=== PATIENT | male | born 1995 | race Caucasian/White ===

== ENCOUNTER 2021-11-15 15:12 | Outpatient (REF) | payer OTHER, SELFPAY ==
--- NOTE | ~2021-11-15 | XR_ITS ---
EXAMINATION: XR LUMBOSACRAL SPINE WITH OBLIQUES CLINICAL INFORMATION: Radiculopathy lumbar region COMPARISON: 10/30/2006. TECHNIQUE: AP, both oblique, and lateral views of the lumbar spine. Lateral view of the lumbosacral junction. FINDINGS: Straightening of normal lordosis. Otherwise alignment is normal. Vertebral body heights are maintained. There is new moderate degenerative disc space narrowing at L5-S1 with endplate sclerosis. No significant facet arthrosis. 3 mm calcification in the right upper quadrant may reflect a small kidney stone or gallstone. XR/XR lumbar spine 4V min IMPRESSION: New moderate degenerative disc space narrowing at L5-S1 with mild endplate sclerosis. 3 mm calcification in the right upper quadrant may reflect a small kidney stone or gallstone.
== END 2021-11-15 15:13 | disposition home or self-care (01) ==
LOC: HO.XRAY 15:12
PROVIDERS: PCP Internal Medicine; Visit Provider Internal Medicine
DX: M54.16 Radiculopathy, lumbar region (principal)
CPT/HCPCS: 72110

== ENCOUNTER 2021-11-28 15:43 | Outpatient (REF) | payer OTHER, SELFPAY ==
--- NOTE | ~2021-11-28 | MR_ITS ---
EXAMINATION: MR LUMBAR SPINE WITHOUT CONTRAST CLINICAL INFORMATION: New moderate narrowing of L5-S1 joint. Worsening back pain. COMPARISON: X-ray dated 11/15/2021. TECHNIQUE: MRI of the lumbar spine was obtained using routine sequences without contrast. FINDINGS: VERTEBRAL BODIES AND PARASPINAL STRUCTURES: The marrow signal is homogeneous, however, there is moderate endplate edema around a degenerative Schmorl's node along the inferior endplate of L5. Mild right lateralized endplate edema also evident at the S1 level. Reduced intradiscal signal evident at the L4-L5 level with a mild retrosubluxation. There is lnma-be-qtmglrou disc space narrowing and a posterior subluxation at the L5-S1 level. Remaining discs are well hydrated. The paraspinal soft tissues appear normal. The imaged bony pelvis is unremarkable. CONUS MEDULLARIS AND CAUDA EQUINA: Normal, terminating at the level of L1. No lower cord signal abnormality seen. The cauda equina nerve roots are normal. SPINAL LEVELS: L1-L2, L2-L3, and L3-L4: Well-hydrated normal appearance of the discs without central canal stenosis or foraminal narrowing. L4-L5: Retrosubluxation and disc degeneration with a shallow central disc protrusion and annular tear mildly impressing upon the ventral thecal sac and right L5 nerve root. Mild facet arthropathy without central canal stenosis. Mild foraminal narrowing. L5-S1: Loss of disc height and disc degeneration with a retrosubluxation and shallow, broad-based central disc protrusion. Mild to moderate facet arthropathy without central canal stenosis. Moderate to severe foraminal narrowing, more so on the right side with right lateralized endplate edema. MR/MR lumbar spine wo con IMPRESSION: Disc degeneration and posterior subluxation with a shallow central disc protrusion and underlying annular tear at the L4-L5 level mildly impressing upon the right L5 nerve root. Loss of disc height and posterior subluxation at the L5-S1 level with a shallow broad-based central disc protrusion. Noqslinz-my-njgstq foraminal narrowing, more so on the right side with right lateralized endplate edema around a degenerative inferior endplate Schmorl's node.
== END 2021-11-28 15:44 | disposition home or self-care (01) ==
LOC: HO.MRI 15:43
PROVIDERS: PCP Internal Medicine; Visit Provider Internal Medicine
DX: M54.16 Radiculopathy, lumbar region (principal)
CPT/HCPCS: 72148

== ENCOUNTER → 2021-12-06 10:16 | Outpatient (BNVA) | payer OTHER, SELFPAY | PROVIDERS: PCP Internal Medicine; Visit Provider Nurse Practitioner Family | DX: M51.36 Other intervertebral disc degeneration, lumbar region (principal); M54.51 Vertebrogenic low back pain; M54.17 Radiculopathy, lumbosacral region; M47.817 Spondylosis without myelopathy or radiculopathy, lumbosacral region | CPT/HCPCS: 99202 ==

== ENCOUNTER → 2021-12-20 09:00 | Outpatient (BNVA) | payer OTHER, SELFPAY | PROVIDERS: PCP Internal Medicine; Visit Provider Nurse Practitioner Family | DX: Z13.89 Encounter for screening for other disorder (principal) ==

== ENCOUNTER 2024-04-13 09:32 | Outpatient (REF) | payer MEDICAID, SELFPAY ==
[2024-04-13 12:11] LABS: Cholesterol 185 mg/dL (<200); HDL Cholesterol 34 mg/dL (>40); LDL Cholesterol Calculated 129 mg/dL (<100); Triglycerides 110 mg/dL (<150)
[2024-04-13 12:15] LABS: HBS Num1 44.56 mIU/mL (0-7.99); HBc Num1 0.08 S/CO (0.00-0.79); HBsAGNum1 0.26 S/CO (0.00-0.99); HIV AB/AG Nonreactive (Nonreactive); HIV Num 1 0.05 S/CO (0.00-0.99); Hepatitis B Core Antibody Nonreactive (Nonreactive); Hepatitis B Surface Antigen Negative (Negative); ~Hepatitis B Surface Antibody REACTIVE (Nonreactive); ~Hepatitis C Antibody Nonreactive (Nonreactive)
[2024-04-13 13:11] LABS: CT PCR NOT DETECTED (Not Detect.); NG PCR NOT DETECTED (Not Detect.)
[2024-04-15 09:59] LABS: RPR Rapid Plasma Reagin NON-REACTIVE (NON-REACTIVE)
== END 2024-04-13 09:33 | disposition home or self-care (01) ==
LOC: HO.HHCL 09:32
PROVIDERS: Visit Provider Nurse Practitioner
DX: Z13.9 Encounter for screening, unspecified (principal)
CPT/HCPCS: 36415; 80061; 86592; 86704; 86706; 86803; 87340; 87389; 87491; 87591

== ENCOUNTER 2024-11-16 13:57 | Outpatient (AMB) | payer MEDICAID, SELFPAY ==
--- NOTE | 2024-11-16 13:58 | A.OFFVIS_ITS ---
Vital Signs 11/16/24 14:13 Height 5 ft 7 in Weight 183 lb 6.793 oz BMI 28.7 BP 108/58 L Blood Pressure Location Rt brachial Position Sitting Pulse 62 Pulse Source Pulse Oximeter Pulse Oximetry (%) 97 Oxygen Delivery Method Room Air Intake Visit Reasons: LLQ ABD. PAIN Intake Note: NEW PATIENT for LLQ pain x2-3 mos episodic. Prior hx of colo/egd? N Chief Complaint; C/O burning sensation, seemingly dependent on position. Pt denies any other concerns or sx at this time. Ground Systems Engineer Required: No Accompanied by: Self / Same As Patient Allergies bee pollen [BEE STINGS] Allergy (Unknown, Verified 04/21/24 16:29) UNKNOWN HPI HPI LLQ ABD. PAIN: Details: 29-year-old male with past medical history of lumbosacral radiculopathy is here today for initial consultation. Patient was sent to us for symptoms of left lower quadrant pain. Patient reports that the pain feels like burning. Is not constant but worse when he is laying on that side. Patient admits that he is not moving his bowels completely. Sometimes no bowel movement for 1 or 2 days. Patient denies any melena, hematochezia, unintentional weight loss or ribbon like stools. Patient denies any dyspepsia, dysphagia or odynophagia. Denies any other GI concerning issues. Occasional postprandial abdominal bloating depending on what he. [facility], [facility] Surgical History Hx of appendectomy (~09/2003) Social History Alcohol intake: current Comment: Weekend Patient Tobacco Use Status: Never used Tobacco Substance Use Type: Marijuana Review of Systems Const Denies weight gain and Denies weight loss ENT Reports no additional complaints, Denies dysphagia and Denies odynophagia Card Reports no additional complaints Resp Reports no additional complaints GI Reports abdominal pain (LLQ), Denies belching, Denies melena, Reports bloating, Denies change in bowel habits, Denies dysphagia, Denies excessive flatus, Denies dyspepsia, Denies heartburn, Denies diarrhea, Denies loose stools, Denies nausea, Denies odynophagia and Denies vomiting Reports no additional complaints Musc Reports no additional complaints Neuro Reports no additional complaints Psych Reports no additional complaints Endo Reports no additional complaints Physical Exam Vital Signs: Last Vital Signs Pulse 62 11/16/24 14:13 BP 108/58 L 11/16/24 14:13 Pulse Ox 97 11/16/24 14:13 Oxygen Delivery Method Room Air 11/16/24 14:13 BMI result Body Mass Index 28.7 Const General: healthy appearing, no acute distress and well developed Nutritional Appearance: well nourished Orientation/consciousness: patient oriented x3 Resp Effort & Inspection: normal respiratory effort, able to speak in complete sentences, no tracheal deviation and symmetric chest movement Auscultation: clear to auscultation bilaterally Cardio Rate: regular rate GI Inspection: Yes normal to inspection and No distended Palpation (GI): Soft to palpation, not firm, nontender and No hepatosplenomegaly present Auscultation: normal bowel sounds General: Yes no CVA tenderness Back/Spine/Pelvis Back: no CVA tenderness Skin General skin exam: elasticity normal, turgor normal and dry skin Neuro General: patient oriented x3 Psych Appearance: grossly normal Mental Status: mental status grossly normal Assessment & Plan Assessment & Plan (1) LLQ abdominal pain: Code(s): R10.32 - Left lower quadrant pain (2) Constipation: Code(s): K59.00 - Constipation, unspecified Qualifiers: Constipation type: slow transit constipation Qualified Code(s): K59.01 - Slow transit constipation (3) GERD (gastroesophageal reflux disease): Code(s): K21.9 - Gastro-esophageal reflux disease without esophagitis Qualifiers: Esophagitis presence: esophagitis presence not specified Qualified Code(s): K21.9 - Gastro-esophageal reflux disease without esophagitis Plan Left lower quadrant pain most likely related to him not emptying his bowels completely. Patient will try stool softener and see if that will help. He will call our office in week or 2 if he continues to have symptoms. For now we will hold off on ordering CT scan. Patient does not have any other symptoms except for burning like pain when constipated. Patient also suffers will low back pains. Negative physical exam today. Patient was encouraged to increase fluid intake and activity to promote better bowel motility. Reflux occasional, can be controlled with food. Patient will avoid dietary triggers and late night snacking. Avoid NSAIDs. Staying upright for minimum 3 hours after meals discussed with patient. Follow-up in the office in 3 months, sooner on as needed basis. Patient is agreeable to this plan and verbalizes understanding of instructions. He was given the opportunity to ask questions and all questions answered. Thank you for allowing me to participate in his care Medications: New docusate sodium 100 mg PO BEDTIME 90 caps 3RF K59.00 - Constipation, unspecified Coding Level of Care Code New Pt Level 3 (83394) Diagnoses LLQ abdominal pain R10.32 Slow transit constipation K59.01 Constipation type: slow transit constipation Gastroesophageal reflux disease, unspecified whether esophagitis present K21.9 Esophagitis presence: esophagitis presence not specified Time Spent (min) 40 Comment 30 minutes spent with patient and additional 10 minutes spent reviewing his records
[2024-11-16 14:13] VITALS: BP 108/58; PULSE 62; O2SAT 97; BMI 28.7
--- OUTSIDE RECORDS SUMMARY | 2024-11-16 16:46 | XMS_ITS | Encounter Summary ---
Author Organization [employer] Address [address] [place] [address] Care Team Providers Care Commissions Coordinator Name Role Phone Tamra Rowley NP Primary Care Provider [phone] Encounter Details Date Type Department Care Team ([facility] st Contact Info) Description 11/09/2024 Telephone [facility] [address] [place] [address] Rivka Avendaño MD [address] [place] [address] Social History Tobacco Use Types Packs/Day Years Used Date Smoking Tobacco: Former Cigarettes Smokeless Tobacco: Current Comments:Occasional cig smok ing about 2 weekends a month; vapes occasionally as well Alcohol Use Standard Drinks/Week Comments Yes 12 (1 standard drink = 0.6 oz pu re alcohol) on the weekends Alcohol Answer Date Recorded How often do you have a drink containing alcohol ? 2 04/13/2024 How many drinks containing a lcohol do you have on a typical day when you are drinking? 3 04/13/2024 How often do you have six or more drinks on one occasion? 2 04/13/2024 Depression Answer Date Recorded Patient Health Questionnaire-9 Score 0 02/12/2024 Patient Health Questionnaire-9 Score 0 02/12/2024 Last PHQ-9: Questionnaire Data Not on file 0 02/12/2024 Housing Stability Answer Date Recorded What is your housing situation today? I have werner garcia 01/29/[address] you li ve. Do you have problems with any of the following? None of the above 01/29/2024 Food Insecurity Answer Date Recorded Within the past 12 months, y ou worried that your food would run out before you got money to buy more: Never True 01/29/2024 Within the past 12 months,th e food you bought just didn't last and you didn't have enough money to get more: Never True Transportation Answer Date Recorded In the past 12 months, has l ack of transportation kept you from medical appts, meetings, work or from getting things needed for daily living? No 01/29/2024 Utilities Answer Date Recorded In the past 12 months, has t he electric, gas, oil or water company threatened to shut off services in your home? No 01/29/2024 Depression Answer Date Recorded Patient Health Questionnaire-2 Score 0 02/12/2024 Sex and Gender Information Value Date Recorded Sex Assigned at Male 07/14/2022 10:15 AM EDT Legal Sex Male 10:15 AM EDT Gender Identity Male 07/14/2022 10:15 AM EDT Sexual Orientation Straight 07/14/2022 10 :15 AM EDT documented as of this encounter Miscellaneous Notes * Telephone Encounter - Opal Jimenez RN - 11/09/2024 1:22 PM EST Assessment: Patient presents to [facility] [place] c/o 2 recent episodes of chest pain and left arm pain. First episode occurred Thursday evening 11/06/24, and lasted intermittently throughout the night. Patient states pain was 7/10 and poking in the left lower chest with lingering left arm pain. Patient states he was lightheaded during the night- not any better when laying down and he was unable to sleep. Patient also reports some SOB during the episode. Today Patient states he started feeling the left arm pain again and also a weird feeling in the left chest while at work. Patient reports pain was a 6/10 lasted from around [id number]. Right now patient denies any pain, 0/10, states he is feeling back to normal. Patient reports he was informed his cholesterol was high when he last had blood work about 2-3 months ago. No changes made after being informed about high cholesterol. Intermittently vapes nicotine, denies smoking cigarettes and denies any drug use. Patient takes ibuprofen 800mg daily for sciatica pain. Recent ED visit or hospitalization: No. VS as follows (if applicable): Temp 97.8 orally HR 67 regular rate and rhythm Resp 16 no respiratory distress BP 130/81 left Arm; Device: Automatic Cuff Size: regular O2 sat 98 % on room air Current Pain level: 0 Hgt 5'7 Wgt 182lb No Known Allergies Current Outpatient Medications Medication Sig Dispense Refill ciclopirox (Penlac) 8 % solution APPLY TOPICALLY AT BEDTIME 6 mL 3 ibuprofen 400 MG tablet Take 1 tablet (400 mg) by mouth every 6 (six) hours if needed for moderate pain or fever for up to 30 doses. 30 tablet 0 lidocaine (Lidoderm) 5 % patch Apply 1 patch topically Once per day. Remove & discard patch within 12 hours or as directed by MD. May use 2 patches at once. 60 patch 2 No current facility-administered medications for this visit. Patient Active Problem List Diagnosis Date Noted Acute left-sided low back pain without sciatica 04/18/2024 Routine adult health maintenance 04/13/2024 Low back pain radiating to right leg 01/05/2019 Fungal infection of foot 01/31/2015 In Office Testing EKG performed and given to Dr Roy for interpretation Plan of care: Report to Dr Aravind Roy Provider evaluation: Yes Patient in triage room awaiting Provider evaluation. Michael GARCIA also updated on plan of care. Opal Jimenez RN documented in this encounter Plan of Treatment Not on file documented as of this encounter Visit Diagnoses Not on filedocumented in this encounter Additional Health Concerns Assessment Noted Time PHQ-9 Depression Total Score: 0 02/12/20 1:47 PM EDT documented as of this encounter Care Teams Commissions Coordinator Relationship Specialty Start Date End Date Tamra Rowley NP [address] [place] [phone] PCP - General Family Medicine 11/12/23 documented as of this encounter
--- OUTSIDE RECORDS SUMMARY | 2024-11-16 16:46 | XMS_ITS | Encounter Summary ---
Author Organization [employer] Address [address] [place] [address] Care Team Providers Care Smoke And Flame Specialist Name Role Phone Tamra Rowley NP Primary Care Provider [phone] Reason for Visit * Reason Onset Date Comments Results 07/20/2024 Encounter Details Date Type Department Care Team ([facility] st Contact Info) Description 07/20/2024 Telephone [facility] [address] [place] [address] Tamra Rowley NP [address] [place] [address] Results Social History Tobacco Use Types Packs/Day Years [...] encounter Miscellaneous Notes * Telephone Encounter - Lizbeth Cisneros RN - 07/21/2024 11:35 AM EST Tc to [facility] to confirm if pt completed their CT Abdomen Pelvis w/Contrast. [facility] reports they have no order and pt did not complete CT with them Tc to [facility] to confirm if pt complete cat scan with them which ed they confirmed and faxed over to us. Message for forwarded to ordering provider for review. * Telephone Encounter - Oziel Goldberg - 07/20/2024 2:33 PM EST TC from pt requesting call back regarding Results. Type of results: CT Date when done: last week didn't know specificly Facility: [facility] Contact pt at [phone] documented in this encounter Plan of Treatment Not on file documented as of this encounter Visit Diagnoses Not on filedocumented in this encounter Additional Health Concerns Assessment Noted Time PHQ-9 Depression Total Score: 0 02/12/20 1:47 PM EDT documented as of this encounter Care Teams Smoke And Flame Specialist Relationship Specialty Start Date End Date Tamra Rowley NP [address] [place] [address] PCP - General Family Medicine 11/12/23 documented as of this encounter
--- OUTSIDE RECORDS SUMMARY | 2024-11-16 16:46 | XMS_ITS | Encounter Summary ---
Author Organization [email or web address] Address [address] [place] [address] Care Team Providers Care Golf Ball Cover Treater Name Role Phone Tamra Rowley NP Primary Care Provider [phone] Reason for Visit * Reason Onset Date Comments Order 06/24/2024 Encounter Details Date Type Department Care Team ([facility] st Contact Info) Description 06/24/2024 Telephone [facility] [address] [place] [address] Tamra Rowley NP [address] [place] [address] Order Social History Tobacco Use Types Packs/Day Years [...] encounter Miscellaneous Notes * Telephone Encounter - Marce Hansen - 06/24/2024 1:07 PM EDT Tc from pt requesting status on order for cat scan of the abdomin. Pt stated he was advise during [facility] visit on 06/08/24 a order would be placed. Contact pt at [phone] documented in this encounter Plan of Treatment Not on file documented as of this encounter Visit Diagnoses Not on filedocumented in this encounter Additional Health Concerns Assessment Noted Time PHQ-9 Depression Total Score: 0 02/12/20 1:47 PM EDT documented as of this encounter Care Teams Golf Ball Cover Treater Relationship Specialty Start Date End Date Tamra Rowley NP [address] [place] [id number] PCP - General Family Medicine 11/12/23 documented as of this encounter
--- OUTSIDE RECORDS SUMMARY | 2024-11-16 16:46 | XMS_ITS | Encounter Summary ---
Author Organization [employer] Address [address] [place] [address] Care Team Providers Care Industrial Cafeteria Manager Name Role Phone Tamra Rowley NP Primary Care Provider [phone] Reason for Referral * Consultation (Routine) - Authorized Specialty Diagnoses / Procedures Referred By Khoa jane Referred To Contact Cardiology Diagnoses Chest pain, unspecified type Aravind Roy MD [address] [place] [phone] Phone: tel: fax: [address] Phone: tel: fax: Referral ID Status Reason Start Date Expiration Date Visits Requested Visits Authorized [id number] Authorized Specialty Services Required 11/09/2024 11/09/2025 6 6 Encounter Details Date Type Department Care Team (Late st Contact Info) Description 11/09/2024 3:20 PM EST Office Visit [facility] [address] [place] [address] [phone] Aravind Roy MD [address] [place] [address] [phone] Chest pain, unspecified type (Primary Dx) Social History Tobacco Use Types Packs/Day Years [...] AM EDT documented as of this encounter Last Filed Vital Signs Vital Sign Reading Time Taken Comments Blood Pressure 130/81 11/09/2024 1:48 PM EST Pulse 67 11/09/2024 1:48 PM EST Temperature 36.6 ??C (97.8 ??F) 11/09/2024 1:48 PM ES T Respiratory Rate 16 11/09/2024 1:48 PM EST Oxygen Saturation 98% 11/09/2024 1:48 PM EST Inhaled Oxygen Concentration - - Weight 82.6 kg (182 lb) 11/09/2024 1:48 PM EST Height 170.2 cm (5' 7 ) 11/09/2024 1:48 PM EST Body Mass Index 28.51 11/09/2024 1:48 PM EST documented in this encounter Progress Notes * Aravind Roy MD - 11/09/2024 3:40 PM ESTAssociated Order(s): ECG 12 lead Pre-Procedure Diagnose(s): Chest pain, unspecified type Post-Procedure Diagnose(s): Chest pain, unspecified type Subjective Patient ID: Armen Ferguson is a 29 y.o. male. HPI 3 days ago at night while resting in bed Shon had onset of left anterior chest pain which she describes as sharp, pinching, and poking and radiated down his left arm with associated shortness of breath. It was intermittent throughout the night. No associated nausea, vomiting, diaphoresis. In the morning when he woke his symptoms had resolved. 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 They lasted off-and-on for 2 hours and resolved. He is currently asymptomatic. Never had similar symptoms. Has no known family history of coronary artery disease. He had slightly elevated cholesterol November 15, 2021 and states he has been using lifestyle changes to lower cholesterol. Lives with spouse. Works driving trucks. Former smoker. Patient Active Problem List Diagnosis Low back pain radiating to right leg Fungal infection of foot Routine adult health maintenance Acute left-sided low back pain without sciatica The following portions of the chart were reviewed this encounter and updated as appropriate: Review of Systems Constitutional: Negative for fever. Respiratory: Positive for shortness of breath. Cardiovascular: Positive for chest pain. Gastrointestinal: Negative for abdominal pain. Skin: Negative for rash. Neurological: Negative for headaches. Objective Physical Exam Constitutional: Appearance: Normal appearance. HENT: Right Ear: Tympanic membrane, ear canal and external ear normal. Left Ear: Tympanic membrane, ear canal and external ear normal. Nose: Nose normal. Mouth/Throat: Mouth: Mucous membranes are moist. Pharynx: Oropharynx is clear. Eyes: Conjunctiva/sclera: Conjunctivae normal. Pupils: Pupils are equal, round, and reactive to light. Cardiovascular: Rate and Rhythm: Normal rate and regular rhythm. Heart sounds: No murmur heard. Pulmonary: Effort: Pulmonary effort is normal. Breath sounds: Normal breath sounds. Musculoskeletal: General: Normal range of motion. Cervical back: No tenderness. Skin: Findings: No rash. Neurological: Mental Status: He is alert. Gait: Gait is intact. Psychiatric: Mood and Affect: Mood normal. Behavior: Behavior normal. ECG 12 lead Date/Time: 11/09/2024 2:00 PM Performed by: Aravind Roy MD Authorized by: Aravind Roy MD Previous ECG: Previous ECG: Unavailable Interpretation: Interpretation: normal Rate: ECG rate: 61 ECG rate assessment: normal Rhythm: Rhythm: sinus rhythm Ectopy: Ectopy: none QRS: QRS axis: Normal QRS intervals: Normal QRS conduction: normal ST segments: ST segments: Normal T waves: T waves: normal Q waves: Abnormal Q-waves: not present Assessment/Plan Diagnoses and all orders for this visit: Chest pain, unspecified type EKG: Normal Currently asymptomatic. Go to ED if sx recur. Referred to Cardiology. documented in this encounter Plan of Treatment Pending Results Name Type Priority Associated Diagnoses Date /Time ECG 12 lead ECG Routine Chest pain, unspecified type 11/09/2024 4:22 PM EST Scheduled Referrals Name Type Priority Associated Diagnoses Orde r Schedule Referral to Cardiology Outpatient Referral Routine Chest pain, unspecified type Expected: 11/09/2024 (Approximate), Expires: 11/09/2025 documented as of this encounter Procedures Procedure Name Priority Date/Time Associated Diagnosis Comments ECG 12-LEAD Routine 11/09/2024 4:22 PM EST Chest pain, unspecified type documented in this encounter Visit Diagnoses Diagnosis Chest pain, unspecified type- Primary documented in this encounter Additional Health Concerns Assessment Noted Time PHQ-9 Depression Total Score: 0 02/12/20 24 1:47 PM EDT documented as of this encounter Care Teams Industrial Cafeteria Manager Relationship Specialty Start Date End Date Tamra Rowley NP [address] [place] [phone] PCP - General Family Medicine 11/12/23 documented as of this encounter
--- OUTSIDE RECORDS SUMMARY | 2024-11-16 16:46 | XMS_ITS | Clinical Summary ---
Author Organization [employer] Address [address] [facility] [address] [facility] [address] [place] [address] Care Team Providers Care Assurance Specialist Name Role Phone Tamra Rowley NP Primary Care Provider [phone] Allergies No known active allergies Medications ciclopirox (Penlac) 8 % solutionIndicat ions:Tinea pedis of both feet APPLY TOPICALLY AT BEDTIME 6 mL 3 4 Active lidocaine (Lidoderm) 5 % patch Apply 1 patch topically Once per day. Remove & discard patch within 12 hours or as directed by MD. May use 2 patches at once. 60 patch 2 4 06/08/20 25 Active ibuprofen 400 MG tablet Take 1 tablet (400 mg) by mouth every 6 (six) hours if needed for moderate pain or fever for up to 30 doses. 30 tablet 4 Active ibuprofen 200 MG tablet Take 200 mg by mouth. 10/28/19 25 Discontinu ed(Therapy completed) ibuprofen 800 MG tablet Take 800 mg by mouth every 8 (eight) hours if needed. 3 10/28/19 25 Discontinu ed(Therapy completed) Active Problems Problem Noted Date Diagnosed Date Acute left-sided low back pain without sciatica 04/18/2024 Routine adult health maintenance 04/13/2024 Assessment & Plan (04/13/2024 9:34 AM EDT): -age appropriate screening and immunizations up to date (STI screening) -low cardiovascular risk -mental health screening negative -healthy diet and routine daily exercise of 60 min minimum -healthy social behaviors encouraged -anticipatory guidance reviewed: diet, exercise -smoking/vaping cessation encouraged. Patient is not ready at this time -Tdap vaccine received today -follow-up 1 year for PE or as needed Low back pain radiating to right leg 01/05/2019 Fungal infection of foot 01/31/2015 Assessment & Plan (04/12/2024 10:03 PM EDT): -trial application of penlac to toenails nightly and apply clotrimazole cream between toes -advised to spray all shoes with OTC lotrimin spray to prevent cycle of re- infection -advised to expose bare feet to air -educated on the length of time for toenail fungus to heal -discussed implication for and potential side effect of oral medication for treatment -will schedule for transfer patient visit Encounters Date Type Department Care Team Description 11/09/2024 3:20 PM EST Office Visit [facility] [address] [place] [address] Aravind Roy MD Chest pain, unspecified type (Primary Dx) 11/09/2024 Telephone [facility] [address] [place] [address] Rivka Avendaño MD 10/14/2024 11:00 AM EST Office Visit [facility] [address] [place] [address] Randy, Autumn, OD Chorioretinal scar of both eyes (Primary Dx); Suspicious optic nerve cupping of both eyes; Astigmatism of both eyes, unspecified type 10/14/2024 Travel 10/07/2024 Travel 09/08/2024 Telephone [facility] [address] [place] [address] Tamra Rowley NP from Last 3 Months Immunizations Name Administration Dates Next Due DTaP 02/20/1997, 6,1993,06/26,1993 Hep B, Adolescent or Pediatric 1993,1993,1993 Hib (HbOC) 1993, 4,1993,04/17 IPV 02/20/1997, 4,1993,02/24 Influenza injectable quadriv alent IIV4 with preservative 07/22/2016 MMR 02/20/1997,1993 Meningococcal MPSV4 05/03/2008 TD (adult), 2 Lf tetanus tox oid, preservative free, adsorbed 11/15/2021,03/01/2005 Tdap 04/13/2024,05/03/2008 Varicella 05/03/2008 Family History Medical History Relation Name Comments Diabetes Brother Diabetes Maternal Grandmother Diabetes Mother Diabetes Paternal Grandmother Relation Name Status Comments Brother Maternal Grandmother Mother Paternal Grandmother Social History Tobacco Use Types Packs/Day Years Used Date Smoking Tobacco: Former Cigarettes Smokeless Tobacco: Current Tobacco Cessation:Ready to Q uit: Not Asked; Counseling Given: Not Answered Comments:Occasional cig smoking about 2 weekends a month; vapes occasionally [...] Orientation Straight 07/14/2022 10 :15 AM EDT Last Filed Vital Signs Vital Sign Reading [...] Mass Index 28.51 11/09/2024 1:48 PM EST Plan of Treatment Health Maintenance Due Date Last Done Comments Family Planning (PISQ) 02/05/2008 COVID-19 Vaccine ( season) 2024 Influenza Vaccine (#1) 2024 07/22/2016 SDOH Screening 01/28/2025 01/29/2024 Depression Screening 02/11/2025 02/12/2024, 02/12/20 Alcohol/Substance Use Screening 04/13/2025 04/13/2024 Tobacco Screening 11/09/2025 11/09/2024 Lipid Panel 04/13/2029 04/13/2024, 11/15/2021 DTaP/Tdap/Td Vaccines (9 - Td or Tdap) 04/13/2034 04/13/2024, 11/15/2021, 05/03/2008, Additional history exists Zoster Vaccines (1 of 2) 2043 RSV Patients and Patients Aged 60 years or older (1 - 1-dose 75+ series) 02/05/2068 Hepatitis B Vaccines Completed 1993, 1993, 1993 HIB Vaccines Aged Out 1993, 09/16, 1993, Additional history exists No longer eligible based on patient's age to complete this topic IPV Vaccines Completed 02/20/1997, 09/16, 1993, Additional history exists Meningococcal Vaccine Aged Out 05/03/2008 No carmelo mando eligible based on patient's age to complete this topic HIV Screening Completed 04/13/2024, 11/15/2021 Hepatitis C Screening Completed 04/13/2024, 022 HPV Vaccines Aged Out No longer eligi ble based on patient's age to complete this topic Hepatitis A Vaccines Aged Out No long er eligible based on patient's age to complete this topic Pneumococcal Vaccine: Pediatrics (0 to 5 Years) and At-Risk Patients (6 to 49) Years) Aged Out No longer eligible based on patient's age to complete this topic RSV under 20 months Aged Out No longe r eligible based on patient's age to complete this topic Rotavirus Vaccines Aged Out No longer eligible based on patient's age to complete this topic Procedures Procedure Name Priority Date/Time Associated Diagnosis Comments ECG 12-LEAD Routine 11/09/2024 4:22 PM EST Chest pain, unspecified type OCT, OPTIC NERVE - OU - BOTH EYES Routine 10/14/2024 11:00 AM EST Suspicious optic nerve cupping of both eyes HEPATITIS C AB W/REFL TO HCV RNA, QN, PCR Routine 04/13/2024 9:38 AM EDT Encounter for health-related screening HIV 1/2 ANTIGEN/ANTIBODY, FOURTH GENERATION W/RFL Routine 04/13/2024 9:38 AM EDT Encounter for health-related screening LIPID PANEL, STANDARD Routine 04/13/2024 9:38 AM EDT Encounter for health-related screening from Last 3 Months or Most Recently Relevant to Health Maintenance Results * Hepatitis C Antibody with Reflex to HCV, RNA, Quantitative, Real-Time PCR (04/13/2024 9:38 AM EDT) Hepatitis C Antibody Nonreactive Nonreactive [facility] Comment:Antibodies to HCV no t detected; does not exclude early acuteHCV infection. Blood Venous blood specimen / Unknown 04/13/2024 9:38 AM EDT 04/13/2024 11:21 AM EDT [facility] LAB BLOOD ORDERABLES Final Resu lt [facility] [address] [place] [address] [phone] * HIV-1/2 Antigen and Antibodies, Fourth Generation, with Reflexes (04/13/2024 9:38 AM EDT) HIV AB/AG Nonreactive Nonreactive [facility] Comment:HIV-1 p24 Ag and/or HIV-1/HIV-2 Ab not detected.A test result that is nonreactive does not exclude thepossibility of exposure to or infection with HIV-1 and/orHIV-2. Nonreactive results in this assay for individualswith prior exposure to HIV-1 and/or HIV-2 may be due toantigen and antibody levels that are below the limit ofdetection of this assay.The [employer] HIV Ag/Ab Combo assay result andsupplemental assay results should be interpreted inconjunction with the patient's clinical presentation,history and other laboratory results. If the results areinconsistent with clinical evidence, additional testing issuggested to confirm the result. Blood Venous blood specimen / Unknown 04/13/2024 9:38 AM EDT 04/13/2024 11:[address] [facility] LAB BLOOD ORDERABLES Final Resu lt [facility] [address] [place] [address] [phone] * (ABNORMAL) Lipid Panel, Standard (04/13/2024 9:38 AM EDT) Triglycerides 110 <150 mg/dL [facility] Comment:Desirable Triglyceri de: less than 150 mg/dLBorderline High Triglyceride 150-199 mg/dLHigh Triglyceride: 200-499 mg/dLVery High Triglyceride: greater than or equal to 5OO mg/dL Cholesterol 185 <200 mg/dL [facility] Comment:Desirable Cholestero l: less than 200 mg/dLBorderline High Cholesterol: 200-239 mg/dLHigh Cholesterol: greater than 239 mg/dL LDL Cholesterol Calculated 129(H) <100 mg/dL [facility] Comment:Desirable LDL: less than 100 mg/dLNear Optimal/Above Optimal LDL: 110- 129 mg/dLBorderline High LDL: 130-159 mg/dLHigh LDL: 160-189 mg/dLVery High LDL: greater than or equal to 190 mg/dL HDL Cholesterol 34(L) >40 mg/dL [facility] Comment:Desirable HDL: great er than 40 mg/dL Note: This HDL assay may give artificially low results in patients with liver disease. Blood Venous blood specimen / Unknown 04/13/2024 9:38 AM EDT 04/13/2024 11:21 AM EDT Tamra Rowley NP LAB BLOOD ORDERABLES Final Resu lt [facility] [address] [place] [address] [phone] from Last 3 Months or Most Recently Relevant to Health [place] [id number] [facility] C3 HSN FULL Care Teams Assurance Specialist Relationship Specialty Start Date End Date Tamra Rowley NP [address] [place] [phone] PCP - General Family Medicine 11/12/23
== END 2024-11-16 14:43 | disposition home or self-care (01) ==
PROVIDERS: PCP Internal Medicine; Visit Provider Nurse Practitioner Family
DX: R10.32 Left lower quadrant pain (principal); K59.01 Slow transit constipation; K21.9 Gastro-esophageal reflux disease without esophagitis
CPT/HCPCS: 99203

== ENCOUNTER → 2024-11-16 13:57 | Outpatient (BNVA) | payer MEDICAID, SELFPAY | PROVIDERS: PCP Internal Medicine; Visit Provider Nurse Practitioner Family | DX: R10.32 Left lower quadrant pain (principal); K59.01 Slow transit constipation; K21.9 Gastro-esophageal reflux disease without esophagitis | CPT/HCPCS: 99212 ==

== ENCOUNTER 2025-04-24 08:17 | Outpatient (AMB) | payer OTHER, SELFPAY ==
--- NOTE | 2025-04-24 08:29 | A.OFFVIS_ITS ---
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 The chest pain was described as a vague discomfort that comes and goes, with episodes occurring randomly, such as while driving a truck. The pain was accompanied by left arm pain, lightheadedness, and dizziness. The patient reported no significant breathing problems, although he occasionally feels short of breath when walking. He is otherwise fully active and denies any major family medical issues. [facility] Surgical History Hx of appendectomy (~09/2003) Family History (Updated 04/24/25 @ 08:39 by Dagmar Wray) Mother Pre-diabetes Father No problems noted. Social History (Updated 04/24/25 @ 08:40 by Dagmar Wray) Alcohol intake: current Comment: weekend Patient Tobacco Use Status: Never used Tobacco Review of Systems Const Denies weakness ENT Reports dizziness Card Reports chest pain, Denies chest pain with activity, Denies syncope, Denies rapid heart rate, Denies pedal edema, Denies edema, Denies leg edema, Denies lightheadedness, Denies palpitations, Reports dyspnea, Denies dyspnea on exertion and Denies orthopnea Resp Denies cough, Reports dyspnea and Denies dyspnea on exertion GI Denies hematochezia and Denies change in stool character Musc Denies abnormal gait, Denies muscle cramps, Denies muscle weakness, Denies numbness, Denies radiating pain into limb and Denies tingling Neuro Denies abnormal gait, Reports dizziness, Denies syncope, Denies numbness, Denies tingling and Denies weakness Endo Denies palpitations Physical Exam Vital Signs: Last Vital Signs Pulse 67 04/24/25 08:30 BP 110/60 04/24/25 08:30 BMI result Body Mass Index 24.5 Const General: comfortable and no acute distress Orientation/consciousness: patient oriented x3 HEENT Other: Unremarkable Head: Yes normal to inspection Neck Neck: Yes normal visual inspection Chest Chest palpation & inspection: normal inspection of the chest Resp Auscultation: clear to auscultation bilaterally Cardio Palpation: normal PMI Heart sounds: S1 normal heart sound present, S2 normal heart sound present, no gallops, no murmurs and no rubs GI Palpation (GI): Soft to palpation Back/Spine/Pelvis Other: unremarkable Skin General skin exam: no rashes or lesions noted Neuro General: patient oriented x3 Extrem General: Yes normal to inspection Psych Mental Status: mental status grossly normal Office Procedures EKG Details: EKG with underlying sinus rhythm at 67/Min; inferior and lateral T inversions of uncertain etiology; [place] [address]-[id number], Complete Assessment & Plan Assessment & Plan (1) Precordial chest pain: Code(s): R07.2 - Precordial pain Category: Medical (2) SOB (shortness of breath): Code(s): R06.02 - Shortness of breath Category: Medical Plan An echocardiogram is planned to assess the patient's cardiac function and investigate the cause of the chest pain and associated symptoms. The patient is advised to monitor symptoms and report any worsening or new symptoms. Discussion Notes I discussed with the patient the plan to perform an echocardiogram to evaluate his cardiac health, given his symptoms of chest pain and associated discomfort. I reassured him that at his age, significant cardiac issues are uncommon, but it is prudent to investigate further. Patient was informed and verbally consented to the use of an ambient scribe for clinic note documentation during this visit. Orders: Orders CA echo transthoracic complete Today R06.02 - Shortness of breath, R07.2 - Precordial pain Patient Instructions: - Monitor symptoms and report any changes or new symptoms. - Follow up for the scheduled echocardiogram. Coding Level of Care Code New Pt Level 3 (93210) Diagnoses Precordial chest pain R07.2 SOB (shortness of breath) R06.02 CPT Codes EKG - CPT: 35140-Nnocjuymwrcyaizpu, Complete ([id number])
[2025-04-24 08:30] VITALS: BP 110/60; PULSE 67; BMI 24.5
--- OUTSIDE RECORDS SUMMARY | 2025-04-24 08:35 | XMS_ITS | Clinical Summary ---
Author Organization [employer] Address [address] [place] [address] Care Team Providers Care Production Artist Name Role Phone Tamra Rowley NP Primary Care Provider [phone] Allergies No known active allergies Medications lidocaine (Lidoderm) 5 % patch Apply 1 patch topically Once per day. Remove & discard patch within 12 hours or as directed by MD. May use 2 patches at once. 60 patch 2 06/08/20 24 025 Active ibuprofen 400 MG tablet Take 1 tablet (400 mg) by mouth every 6 (six) hours if needed for moderate pain or fever for up to 30 doses. 30 tablet 06/08/20 24 Active ciclopirox (Penlac) 8 % solutionIndica tions:Tinea pedis of both feet APPLY TOPICALLY AT BEDTIME 6 mL 3 05/23/20 24 025 Discontinued(Me d list cleanup (will not trigger notification to Pharmacy)) Active Problems Problem Noted Date Diagnosed Date [...] Encounters Date Type Department Care Team Description 04/12/2025 2:45 PM EDT Office Visit [facility] [address] [place] [id number] Tamra Rowley NP Overweight (BMI 25.0-29.9) (Primary Dx) 04/12/2025 Travel 04/11/[address] [address] Betty Reed [place] CHARTPREP 04/05/2025 Travel 04/05/[address] [facility] [address] [place] [address] Tamra Rowley NP Pre-visit Planning ([facility] unable to reach [facility] ) from Last 3 Months Immunizations Immunization Administration Dates Next Due DTaP 02/20/1997, 6,1993,06/26,1993 [...] Types Packs/Day Years Used Date Smoking Tobacco: Never Smokeless Tobacco: Former Quit: 2023 Tobacco Cessation:Counseling Given: Not Answered Comments:Occasional cig smoking about 2 weekends a month; vapes occasionally as well Alcohol Use Standard Drinks/Week Comments Yes 12 (1 standard drink = 0.6 oz pu re alcohol) on the weekends Alcohol Answer Date Recorded How often do you have a drink containing alcohol ? 2 04/12/2025 How many drinks containing a lcohol do you have on a typical day when you are drinking? 1 04/12/2025 How often do you have six or more drinks on one occasion? 0 04/12/2025 Depression Answer Date Recorded Patient Health Questionnaire-9 Score 0 04/12/2025 Patient Health Questionnaire-9 Score 0 04/12/2025 Last PHQ-9: Questionnaire Data Not on file 0 04/12/2025 Housing Stability Answer Date Recorded What is your housing situation today? I have werner garcia 04/12/[address] you li ve. Do you have problems with any of the following? None of the above 04/12/2025 Food Insecurity Answer Date Recorded Within the past 12 months, y ou worried that your food would run out before you got money to buy more: Not on file 04/12/2025 Within the past 12 months,th e food you bought just didn't last and you didn't have enough money to get more: Never True Transportation Answer Date Recorded In the past 12 months, has l ack of transportation kept you from medical appts, meetings, work or from getting things needed for daily living? No 04/12/2025 Utilities Answer Date Recorded In the past 12 months, has t he electric, gas, oil or water company threatened to shut off services in your home? No 04/12/2025 Depression Answer Date Recorded Patient Health Questionnaire-2 Score 0 04/12/2025 Internet Access Answer Date Recorded Internet Access Q1 Yes 04/12/2025 Internet Access Q2 Not on file 04/12/2025 Sex and Gender Information Value Date Recorded Sex Assigned at Male 07/14/2022 10:15 AM EDT Legal Sex Male 10:15 AM EDT Gender Identity Male 07/14/2022 10:15 AM EDT Sexual Orientation Straight 07/14/2022 10 :15 AM EDT Last Filed Vital Signs Vital Sign Reading Time Taken Comments Blood Pressure 120/78 04/12/2025 3:18 PM EDT Pulse 89 04/12/2025 3:18 PM EDT Temperature 37.1 C (98.7 F) 04/12/2025 3:18 PM EDT Respiratory Rate 21 04/12/2025 3:18 PM EDT Oxygen Saturation 97% 04/12/2025 3:18 PM EDT Inhaled Oxygen Concentration - - Weight 73.2 kg (161 lb 6.4 oz) 04/12/2025 3:18 P M EDT Height 170.2 cm (5' 7 ) 04/12/2025 3:18 PM EDT Body Mass Index 25.28 04/12/2025 3:18 PM EDT Plan of Treatment Health Maintenance Due Date Last Done Comments Family Planning (PISQ) 02/05/2008 HPV Vaccines (1 - Male 3-dose series) 02/05/2008 COVID-19 Vaccine ( - season) 2024 SDOH Screening 01/28/2025 01/29/2024 Influenza Vaccine (#1) 2025 07/22/2016 Alcohol/Substance Use Screening 04/12/2026 04/12/2025 Depression Screening 04/12/2026 04/12/2025, 04/12/20 Disability Screening 04/12/2026 04/12/2025 Tobacco Screening 04/12/2026 04/12/2025 DTaP/Tdap/Td Vaccines (9 - Td or Tdap) [...] 11/15/2021 Hepatitis C Screening Completed 04/13/2024, 022 Hepatitis A Vaccines Aged Out No long er eligible based on patient's age to complete this topic Meningococcal B Vaccine Aged Out No l onger eligible based on patient's age to complete this topic Pneumococcal Vaccine: Pediatrics (0 to 5 Years) and At-Risk Patients (6 to 49) Years Aged Out No longer eligible based on patient's age to complete this topic RSV under 20 months Aged Out No longe r eligible based on patient's age to complete this topic Rotavirus Vaccines Aged Out No longer eligible based on patient's age to complete this topic Procedures Procedure Name Priority Date/Time Associated Diagnosis Comments HEPATITIS C AB W/REFL TO HCV RNA, [...] AM EDT) Hepatitis C Antibody Nonreactive Nonreactive [facility] Comment:Antibodies to HCV no t detected; does not exclude early acuteHCV infection. Blood Venous blood specimen / Unknown 04/13/2024 9:38 AM EDT 04/13/2024 11:21 AM EDT us Tamra Rowley NP LAB BLOOD ORDERABLES Final Resu lt [facility] [address] [place] [phone] [phone] * HIV-1/2 Antigen and Antibodies, Fourth Generation, with Reflexes (04/13/2024 9:38 AM EDT) HIV AB/AG Nonreactive Nonreactive [facility] Comment:HIV-1 p24 Ag and/or HIV-1/HIV-2 Ab not detected.A test result that is nonreactive does not exclude thepossibility of exposure to or infection with HIV-1 and/orHIV-2. Nonreactive results in this assay for individualswith prior exposure to HIV-1 and/or HIV-2 may be due toantigen and antibody levels that are below the limit ofdetection of this assay.The [employer] HIV Ag/Ab Combo assay result andsupplemental assay results should be interpreted inconjunction with the patient's clinical presentation,history and other laboratory results. If the results areinconsistent with clinical evidence, additional testing issuggested to confirm the result. Blood Venous blood specimen / Unknown 04/13/2024 9:38 AM EDT 04/13/2024 11:21 AM EDT Tamra Rowley NP LAB BLOOD ORDERABLES Final Resu lt [facility] [address] [place] [phone] from Last 3 Months or Most Recently Relevant to Health Maintenance Insurance [facility] Care Teams Production Artist Relationship Specialty Start Date End Date Tamra Rowley NP [address] [place] [phone] PCP - General Family Medicine 11/12/23
== END 2025-04-24 08:51 | disposition home or self-care (01) ==
PROVIDERS: PCP Emergency Medicine; Visit Provider Internal Medicine
DX: R07.2 Precordial pain (principal); R06.02 Shortness of breath
CPT/HCPCS: 93010; 99203

== ENCOUNTER → 2025-04-24 08:17 | Outpatient (BNVA) | payer OTHER, SELFPAY | PROVIDERS: PCP Emergency Medicine; Visit Provider Internal Medicine | DX: R07.2 Precordial pain (principal); R06.02 Shortness of breath | CPT/HCPCS: 93005 ==

== ENCOUNTER → 2025-05-26 14:50 | Outpatient (REF) | payer OTHER, SELFPAY ==
--- NOTE | 2025-05-26 14:52 | CA_ITS ---
Transthoracic Echocardiogram Patient (Last, First, Middle): Armen Brown, Gender: Male Date of : 1995 Age: 30 Procedure Date: 05/26/2025 Procedure Type: Transthoracic Echocardiogram Location: OP Height: 167.64 cm Weight: 71.22 kg BSA: 1.80 m2 Heart Rate: 80 bpm BP: 95 / 60 mmHg Ocean Lifeguard Specialist: FLAKO Samson MD: Bryon Noe MD Culinary Assistant: Mazin Hanson MD Symptoms: R07.2 - Precordial pain Study Quality: Adequate ECG Rhythm: Sinus Conclusions: - Essentially normal study Findings Left Ventricle Normal left ventricular size, thickness, and systolic function. The visually estimated ejection fraction is between 55-60%. Spectral Doppler is indicative of a normal filling pattern. Right Ventricle Normal right ventricular cavity size and systolic function. Atria Both atria are normal in size. There is no evidence of interatrial shunt. Aortic Valve Normal aortic valve structure and function. There is no aortic valve stenosis. There is no aortic valve regurgitation. Mitral Valve Normal mitral valve structure and function. There is trace mitral valve regurgitation. There is no mitral valve stenosis. Pulmonic Valve The pulmonic valve is likely normal. There is trace pulmonic valve regurgitation. Tricuspid Valve Normal tricuspid valve structure. Tricuspid regurgitation envelope is inadequate for calculation of right ventricular systolic pressure. Normal right atrial pressure. Great Vessels All visible segments of the aorta are normal in size. The pulmonary artery was not well visualized. Venous The inferior vena cava is normal in size and collapses greater than 50% with inspiration. Pericardium/Pleural There is no evidence of pericardial effusion. Prior Study Comparison No prior study available for comparison. Measurements 2D Linear Measurements IVSd: 0.81 0.6-0.9/0.6-1.0 cm LVIDd: 4.78 3.9-5.3/4.2-5.9 cm LVIDd Index: 2.66 2.4-3.2/2.2-3.1 cm/m2 LVIDs: 3.17 2.0-3.6 cm LVPWd: 0.91 0.7-1.1 cm LA Diam: 2.80 2.7-3.8/3.0-4.0 cm LAIDs Index: 1.56 1.5-2.3 cm/m2 LV Mass: 172.29 67-162/88-224 g LV Mass Index: 95.72 43-95/49-115 g/m2 LVOT Diam: 2.10 3.0+(-)1.3 cm Mitral Valve MV Pk E: 0.63 MV PK A: 0.69 MV Decel Time: 165.00 E/A: 0.90 E'Lateral: 12.40 E'Medial: 8.70 E/E' Med: 7.20 E/E' Lat: 5.10 PHT: 48.00 MVA PHT: 4.58 Decel [place]: 3.81 Aortic Valve AoV Pk Meño: 1.11 AoV Mn Meño: 0.80 AoV VTI: 0.19 AoV Pk Grad: 5.00 Aov Mn Grad: 3.00 KALYN Cont.VTI: 2.90 LVOT LVOT Pk Meño: 0.90 LVOT Mn Meño: 0.65 LVOT VTI: 0.16 LVOT Pk Grad: 3.00 LVOT Mn Grad: 2.00 LVOT Diam: 2.10 LVOT Area: 3.46 Diastolic Function MV Pk E: 0.63 MV Pk A: 0.69 E/A: 0.90 E'Medial: 8.70 E/E' Med: 7.20 E' Laterial: 12.40 E/E' Lat: 5.10 Right Ventricle TAPSE (mm): 18.70 TVS' Meño: 10.00 Tricuspid Valve RA Press: 3.00 Great Vessels Aorta Sinus of Valsalva: 3.10 2.0-3.5 cm Ao Asc: 2.40 2.1-3.4 cm Ao Arch: 2.60 Pulmonary Veins Pulm Vein S/D 0.70 Pulmonary Valve PV Pk Meño: 0.97 Peak PV Grad: 4.00 Updated in Other Vendor System with Status of Final Mazin Hanson MD electronically signed on 05/27/2025 9:01:04 AM with status of Final
--- OUTSIDE RECORDS SUMMARY | 2025-05-26 17:31 | XMS_ITS | Encounter Summary ---
Author Organization [employer] Address [address] [facility] [place] [address] Care Team Providers Care Freight Weigher Name Role Phone Tamra Rowley NP Primary Care Provider [phone] Reason for Visit * Reason Onset Date Comments Order 06/24/2024 Encounter Details Date Type Department Care Team ([facility] st Contact Info) Description 06/24/2024 Telephone [facility] [address] [place] [address] Tamra Rowley NP [address] [place] [phone] Order Social History Tobacco Use Types Packs/Day [...] abdomin. Pt stated he was advise during [facility] visit on 06/08/24 a order would be placed. Contact pt at [phone] documented in this encounter Plan of Treatment Not on file documented as of this encounter Visit Diagnoses Not on filedocumented in this encounter Additional Health Concerns Assessment Noted Time PHQ-9 Depression Total Score: 0 02/12/20 1:47 PM EDT documented as of this encounter Care Teams Freight Weigher Relationship Specialty Start Date End Date Tamra Rowley NP [address] [place] [address] PCP - General Family Medicine 11/12/23 documented as of this encounter
--- OUTSIDE RECORDS SUMMARY | 2025-05-26 17:31 | XMS_ITS | Encounter Summary ---
Author Organization [employer] Address [address] [place] [address] Care Team Providers Care Siding Coreboard Inspector Name Role Phone Tamra Rowley NP Primary Care Provider [phone] Reason for Visit * Reason Onset Date Comments Results 07/20/2024 Encounter Details Date Type Department Care Team ([facility] st Contact Info) Description 07/20/2024 Telephone [facility] [address] [place] [address] Tamra Rowley NP [address] [place] [address] Results Social History Tobacco Use Types Packs/Day [...] - 07/21/2024 11:35 AM EST Tc to [facility] to confirm if pt completed their CT Abdomen Pelvis w/Contrast. [facility] reports they have no order and [...] specificly Facility: [facility] Contact pt at [phone] documented in this encounter Plan of Treatment Not on file documented as of this encounter Visit Diagnoses Not on filedocumented in this encounter Additional Health Concerns Assessment Noted Time PHQ-9 Depression Total Score: 0 02/12/20 1:47 PM EDT documented as of this encounter Care Teams Siding Coreboard Inspector Relationship Specialty Start Date End Date Tamra Rowley NP [address] [place] [phone] PCP - General Family Medicine 11/12/23 documented as of this encounter
--- OUTSIDE RECORDS SUMMARY | 2025-05-26 17:31 | XMS_ITS | Clinical Summary ---
Author Organization [employer] Address [address] [place] [address] Care Team Providers Care Bandage Winding Machine Operator Name Role Phone Tamra Rowley NP Primary Care Provider [phone] Allergies No known active allergies Medications lidocaine [...] to 30 doses. 30 tablet 4 Active Active Problems Problem Noted Date Diagnosed Date Overweight (BMI 25.0-29.9) 04/26/2025 Overview (04/26/2025): -lost about 20 lbs goal 150 lbs Assessment & Plan (04/26/2025 1:11 PM EDT): -working towards weight goal of 150 lbs Dietary Recommendations: Fruits, vegetables, whole grains, protein foods, and fat-free or low-fat dairy products are healthy choices. Eat different types of protein foods in your diet. This can include seafood, lean meats, poultry, beans, peas, lentils, nuts, seeds, soy products, and eggs. Limit foods and beverages higher in added sugars, saturated fat, and sodium. Exercise Recommendations: At least 150 minutes of moderate-intensity physical activity per week, or an equivalent combination of moderate- and vigorous-intensity activity Dyslipidemia (high LDL; low HDL) 04/26/2025 Overview (04/26/2025): - Dyslipidemia with previously elevated LDL and low HDL cholesterol. Assessment & Plan (04/26/2025 1:17 PM EDT): Images from the original note were not included. - Dyslipidemia with previously elevated LDL and low HDL cholesterol. - Order for repeat fasting cholesterol panel. Instructions to avoid eating or drinking after midnight before the test and to avoid fatty or greasy foods and alcohol the night before. - will call with results Acute left-sided low back pain without sciatica 04/18/2024 Routine adult health maintenance 04/13/2024 Assessment & Plan (04/26/2025 1:13 PM EDT): -age appropriate screening and immunizations up to date (STI screening) -low cardiovascular risk -mental health screening negative -healthy diet and routine daily exercise of 60 min minimum -healthy social behaviors encouraged -anticipatory guidance reviewed: diet, exercise -smoking/vaping cessation encouraged. Patient is not ready at this time Assessment & Plan (04/13/2024 9:34 AM EDT): [...] Description 04/12/2025 2:45 PM EDT Office Visit [facility] [address] [place] [phone] Tamra Rowley NP Overweight (BMI 25.0-29.9) (Primary Dx); Onychomycosis; Dyslipidemia (high LDL; low HDL); Routine adult health maintenance 04/12/2025 Travel 04/11/2025 Telephone [facility] [address] [place] [address] Betty Reed [place] CHARTPRE[employer] 04/05/2025 Travel 04/05/2025 Patient Outreach [facility] [address] [place] [address] Tamra Rowley NP Pre-visit Planning (SDOH unable to reach M ) from Last 3 Months Immunizations Immunization Administration Dates Next Due DTaP 02/20/1997, 6,1993,06/26,1993 Hep B, Adolescent or Pediatric 1993,1993,1993 Hib (HbO) 1993, 4,1993,04/17 IPV 02/20/1997, 4,1993,02/24 Influenza injectable [...] Vaccines (1 - Male 3-dose series) 02/05/2008 SDOH Screening 01/28/2025 01/29/2024 COVID-19 Vaccine ( - season) 2025 Influenza Vaccine (#1) 2025 07/22/2016 Alcohol/Substance Use Screening 04/12/2026 04/12/2025 Depression Screening 04/12/2026 04/12/2025, 04/12/20 25 Disability Screening 04/12/2026 04/12/2025 Tobacco Screening 04/26/2026 04/26/2025 DTaP/Tdap/Td Vaccines (9 - Td or Tdap) [...] AM EDT) Hepatitis C Antibody Nonreactive Nonreactive [facility] Comment:Antibodies to HCV no t detected; does not exclude early acuteHCV infection. Blood Venous blood specimen / Unknown 04/13/2024 9:38 AM EDT 04/13/2024 11:21 AM EDT Tamra Rowley NP LAB BLOOD ORDERABLES Final Resu lt [facility] [address] [place] [phone] * HIV-1/2 Antigen and Antibodies, Fourth Generation, with Reflexes (04/13/2024 9:38 AM EDT) HIV AB/AG Nonreactive Nonreactive [facility] Comment:HIV-1 p24 Ag and/or HIV-1/HIV-2 Ab not detected.A test result that is nonreactive does not exclude thepossibility of exposure to or infection with HIV-1 and/orHIV-2. Nonreactive results in this assay for individualswith prior exposure to HIV-1 and/or HIV-2 may be due toantigen and antibody levels that are below the limit ofdetection of this assay.The [employer] HIV Ag/Ab Combo assay result andsupplemental assay results should be interpreted inconjunction with the patient's clinical presentation,history and other laboratory results. If the results areinconsistent with clinical evidence, additional testing issuggested to confirm the result. Blood Venous blood specimen / Unknown 04/13/2024 9:38 AM EDT 04/13/2024 11:21 AM EDT Tamra Rowley NP LAB BLOOD ORDERABLES Final Resu lt [facility] [address] [place] [address] [phone] from Last 3 Months or Most Recently Relevant to Health Maintenance Insurance [facility] [employer] Care Teams Bandage Winding Machine Operator Relationship Specialty Start Date End Date Tamra Rowley NP [address] [place] [phone] PCP - General Family Medicine 11/12/23
== END ==
LOC: HO.CARD 14:50
PROVIDERS: Visit Provider Internal Medicine
DX: R07.2 Precordial pain (principal); R06.02 Shortness of breath
CPT/HCPCS: 93306

== ENCOUNTER → 2025-05-26 14:52 | Outpatient (BNV) | payer OTHER, SELFPAY | PROVIDERS: Visit Provider Internal Medicine Cardiovascular Disease | DX: R07.2 Precordial pain (principal) | CPT/HCPCS: 93306 ==